=== PATIENT | male | born 1980 | race Caucasian/White ===

== ENCOUNTER 2024-02-26 08:33 | Day surgery (SDC) | payer OTHER, SELFPAY ==
--- NOTE | 2024-02-25 18:11 | W.PM.DSUDISC ---
Date of service: 02/26/24 Discharge Plan Disposition Patient Disposition: Home Condition: Good Discharge Details Reason For Visit: screening colonoscopy Attending Provider: Evan Rivera Primary Care Provider: Renata Varner Home Meds and New Rx's Prescriptions: Continued valacyclovir 1 gram tablet 1,000 mg PO DAILY PRN Discontinued bisacodyl [Dulcolax (bisacodyl)] 5 mg tablet,delayed release (DR/EC) 5 mg PO ONCE Qty: 4 0RF Rx Instructions: Colonoscopy Bowel Prep- Per Instructions polyethylene glycol 3350 17 gram/dose powder 238 g PO ONCE Qty: 238 0RF Rx Instructions: Colonoscopy Bowel Prep- Per Instructions Discharge Instructions Instructions: Colon polyps Additional Instructions: , Was very nice meeting you today, and I appreciate your patience prior to the procedure. I hope you are comfortable during the colonoscopy, and that you feel great this afternoon. Everything went very smoothly. Your prep was excellent negative everything fine. I did find and removed 2 tiny polyps in your rectum today. To me, they appear consistent with hyperplastic polyps, which do not pose any significant risk to your health. However, to be safe, I will send them off to the pathologist for their review. Incidentally, there is some prominent lymphoid tissue in your rectum as well. I think this is most often times just caused by the bowel prep itself. I did do some biopsies, but nothing about it worries me in particular. If you need anything, or have any questions at all, please do not hesitate to ask, otherwise, my office will be in touch as soon as we have the results of the polyp report. 1. If tolerated, consume a soft, low fiber diet for 1-2 days. 2. Do not drive, drink alcohol, operate machinery, make critical decisions, or do activities that require coordination or balance for 24 hours. 3. Because air was put into your colon during the procedure, expelling air from your rectum (passing gas or farting) is normal. 4. You may not have a bowel movement for 1-3 days because of the colonoscopy prep. This is normal. 5. Go directly to the emergency room if you notice any of the following: Develop chills (warm to touch), or if you have a thermometer and your temperature is above 101 Difficulty breathing or difficultly swallowing Persistent vomiting Severe abdominal pain, other than gas cramps Severe chest pain Black, tarry stools Any bleeding ? exceeding one tablespoon 6. Call your physician if the site where your intravenous was started becomes red, swollen, painful, and warm to touch. 7. Your physician has reviewed your pre-procedure medications. Please continue to take those medications as previously ordered. You will be given specific information/education regarding any changes to your medications before leaving. Activity:: Activity as Tolerated Diet:: As Tolerated Discharge Orders Discharge Orders: Discharge Order (Routine); Ordered 02/25/24 Ordered By: Evan Rivera DS: Diagnosis Discharge Diagnosis (1) Encounter for screening colonoscopy: Status: Acute Asessment and Plan: Follow-up on polypectomy results
--- NOTE | 2024-02-25 18:13 | COLE_ITS ---
Date of service: 02/26/24 Time of Service: 11:09 Colonoscopy Report Date of procedure: 02/26/24 Pre-op diagnosis general: screening colonoscopy Post-op diagnosis procedure note: other (Colon polyp) Procedure: colonoscopy with polypectomy Surgeon: Evan Rivera Anesthesia Type: General:No Airway Estimated blood loss (mL): 5 Pathology: other (0.25 cm rectal polyps x 2 (sent a single specimen)) Complications: None Disposition: same day Indications: Karl is a 43 year old man who needs his first screening colonoscopy Prep: Miralax/Dulcolax Procedure Start Time: 10:42 Procedure End Time: 10:58 Retraction Time: 11 Findings: 0.25 cm rectal polyps x 2 (sent a single specimen); rectal benign lymphoid aggregate Procedure Description: After the induction of anesthesia, and with the patient in left lateral decubitus position, I began by performing an external anorectal exam.? Perineum and skin were normal, as was the anal verge.? There was no evidence of external hemorrhoids.? Next, I performed a digital rectal exam.? I did not appreciate any abnormal findings.? Next, I advanced a colonoscope into the rectal vault.? I performed retroflexion.? This appeared normal.? Using insufflation, I then advanced the colonoscope beyond the rectal folds and into the sigmoid colon before advancing towards the cecum.? The quality of the prep was outstanding.? The scope was noted to be in the cecum by identification of the ileocecal valve and appendiceal orifice.? I then began withdrawing the colonoscope using repeated irrigation as necessary for full evaluation of the colonic mucosa. ?Once the scope was withdrawn to the level of the rectum, great care was taken to examine portions of the rectal folds.? In the upper portion of the rectal vault were 2 polyps. Each of these was less than 0.25 cm, and they were immediately adjacent to 1 another. These were removed with cold forceps with minimal bleeding. By narrowband imaging, they did appear consistent with hyperplastic polyps, but I will send these off for pathology. Lower rectal vault also give some appearance of benign lymphoid aggregate. Biopsies were performed with cold forceps, but nothing appeared worrisome. There was minimal bleeding from the biopsy sites. Finally, the scope was withdrawn and the patient was brought to the same-day surgery recovery unit as the anesthetic wore off. ?The findings and instructions were shared with the patient prior to disch arge. [place] Bowel Prep [place] Bowel Prep Right Colon: 3 Left Colon: 3 Transverse Colon: 3 Total Score: 9
[2024-02-26 09:03] VITALS: BP 129/102; PULSE 71; RESP 18; TEMP 36.1; O2SAT 96
[2024-02-26] MEDS: Normal Saline 1,000 ML 30 ML IV (09:20)
--- NOTE | 2024-02-26 09:45 | W.ANESPRE ---
General Info Date of Service Date Performed: 02/26/24 Height: 5 ft 10 in Weight: 86 kg Body Mass Index (BMI): 27.1 Surgical Procedure: Operation Date: 02/26/24 09:50 Proposed Procedure Side Surgeon p Kianna Rivera MD Meds Allergies and Home Medications Allergies Allergy/AdvReac Type Severity Reaction Status Date / Time No Known Allergies Allergy Verified 02/26/24 09:05 Home Medication ?Medication ?Instructions ?Recorded valacyclovir 1 gram tablet 1,000 mg PO DAILY PRN 01/07/24 Current Visit Medications: Current Medications Generic Name Dose Route Start Last Admin Trade Name Freq PRN Reason Stop Dose Admin Sodium Chloride 1,000 mls @ 30 mls/hr 02/26/24 08:30 02/26/24 09:20 Saline 1000ml Bag IV 03/27/24 08:29 30 mls/hr INFUSION MARGOTH Administration IV Miscellaneous Supplies 1 each 02/26/24 06:00 Iv Access IV 03/26/24 23:59 DIRECTED MARGOTH Ondansetron HCl 4 mg 02/25/24 18:14 Ondansetron 4 Mg/2 Ml Vial IVP 03/26/24 18:13 Q4H PRN PRN Nausea / Vomiting Sodium Chloride 0 ml 02/26/24 06:00 Normal Saline Flush 10 Ml Syr IV 03/26/24 23:59 PRN PRN Sodium Chloride 0 ml 02/26/24 06:00 Normal Saline 10 Ml Vial IJ 03/26/24 23:59 DIRECTED PRN Sterile Water 0 ml 02/26/24 06:00 Water,Injection,Sterile 10 Ml Vial IJ 03/26/24 23:59 DIRECTED PRN PFSH Active Problems Active Problems: Problem Status Onset Code Encounter for screening colonoscopy Acute Z12.11 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 Generalized anxiety disorder Acute F41.1 Surgical History Surgical History H/O microdiscectomy 2003 History of inguinal hernia repair (~09/24/15) History of vasectomy (~2018) Tobacco Smoking/Tobacco Use Status: Never Alcohol Alcohol Intake: current Alcohol intake frequency: 0-2 drinks per day Alcohol type: beer and wine Substance Use Substance use: Never Substance use type: does not use Vital Signs and Lab Results Vital Signs Most Recent Vital Signs in EMR: Most Recent Vital Signs Temp Pulse Resp BP Pulse Ox 36.1 C L 71 18 129/102 H 96 02/26/24 09:03 02/26/24 09:03 02/26/24 09:03 02/26/24 09:03 02/26/24 09:03 Lab Results Blood Type / Crossmatch: No Data to Display Complete Blood Count: No Data to Display Complete Metabolic Panel: No Data to Display Liver Function Panel: No Data to Display Coagulation Panel: No Data to Display Cardiac Panel: No Data to Display Arterial Blood Gas: No Data to Display Venous Blood Gas: No Data to Display Pancreas Panel: No Data to Display Thyroid Panel: No Data to Display Infectious Disease: No Data to Display Blood Cultures: No Data to Display Toxicology Panel: No Data to Display Anesthesia Assessment and Plan Anesthesia History Personal History: No History of Anesthesia Complications Family History: No Family History of Anesthesia Complications Exercise Tolerance Exercise Tolerance: Metabolic Equivalents>4 Pertinent Negatives Pertinent Negatives: No Symptoms of GERD Cardiac & Pulmonary Exam Cardiac Exam: Normal S1/S2 Heart Sounds Pulmonary Exam: Clear Bilateral Breath Sounds Implantable Cardiac Device Does patient have a Pacemaker or an ICD?: No Airway Exam Known Difficult Airway: No Mallampati Class: 2 Mouth Opening: Normal (> 3cm) Thyromental Distance: Greater than 3 cm Neck Range of Motion: Full ROM Neck Circumference: Normal Teeth Condition: Normal Dentition ASA Classification ASA Score: ASA 2 Emergency Case?: No NPO Status NPO Status: NPO Clears >2 hours, Solids >8 hours Anesthesia Plan Resuscitation Status: Full Code Anesthesia Technique: General Anesthesia Airway Planned: Natural Airway Monitors Used: Standard Monitors
[2024-02-26 09:46] VITALS: BMI 27.1
--- NOTE | 2024-02-26 10:56 | BOWEL_PTH ---
PATIENT: Karl Villa LOC: [facility] U#:[id number] AGE/SX: 43/M ROOM: RE02/26/[address]: Evan Rivera MD : 1980 BED: DIS: 02/26/2024 SPEC #: [id number] RECD: 02/26/24 11:55 STATUS: RASHEED REQ #: [id number] RIVERA: 02/26/24 10:[address]: Evan Rivera DEPT: Surgical Specimen RECD BY: Kellen Dailey ENTERED: 02/26/24 11:57 SP TYPE: Bowel OTHR DR: Renata Varner Tissues: 1 - BIOPSY BOWEL 2 - BIOPSY BOWEL Procedures: GROSS AND MICRO LEVEL 4 IMMUNOPEROXIDASE STAIN Comments: [id number]
[2024-02-26 11:03] VITALS: BP 127/93; PULSE 73; RESP 18; TEMP 36.1; O2SAT 97
--- NOTE | 2024-02-26 11:12 | W.ANESPOSTOP ---
Postoperative Evaluation Date, Time and Location Date Performed: 02/26/24 Time Performed: 11:12 Patient Location: Day Surgery Unit Vital Signs Most Recent Imported Vital Signs: Most Recent Vital Signs Temp Pulse Resp BP Pulse Ox 36.1 C L 73 18 127/93 H 97 02/26/24 11:03 02/26/24 11:03 02/26/24 11:03 02/26/24 11:03 02/26/24 11:03 Pain Score Most Recent Pain Score: Most Recent Pain Score Pain Level 0 02/26/24 11:03 Assessment Mental Status: Awake (Alert & Oriented to Patient Baseline) Airway and Respiratory Function: Patent airway with normal (patient baseline) respiratory exam Cardiovascular Function: Hemodynamically Stable Hydration Status: Adequately Hydrated Nausea & Vomiting: No Nausea or Vomiting Pain: Pt. Denies Any Pain Peripheral Nerve Block: Patient did not receive a nerve block
[2024-02-26 11:30] VITALS: PULSE 66; RESP 16; TEMP 36.3; O2SAT 97
== END 2024-02-26 11:53 | disposition home or self-care (01) ==
LOC: SUR 08:34
PROVIDERS: PCP Internal Medicine; Visit Provider Surgery
PROC: 0DJD8ZZ Inspection of Lower Intestinal Tract, Via Natural or Artificial Opening Endoscopic (ICD-10-PCS; CPT 45378; principal; 2024-02-26 09:45)
DX: Z12.11 Encounter for screening for malignant neoplasm of colon (principal); K63.89 Other specified diseases of intestine
CPT/HCPCS: 45380; 88305; 88361; J2704